=== PATIENT | female | born 1985 | race American Indian/Alaskan Native ===

== ENCOUNTER 2019-01-01 06:05 | Emergency (ER) | payer OTHER ==
[2019-01-01 06:12] VITALS: BP 125/77
[2019-01-01] MEDS ORDERED: NORCO 5/325 PO ONE (06:21)
--- NOTE | 2019-01-01 06:26 | Emergency Department Report ---
ED Lower Extremity HPI - General Chief Complaint: Extremity Injury, Lower Stated Complaint: ETOH Source: patient, family Mode of arrival: Wheelchair Limitations: Physical Limitation - History of Present Illness Initial Comments: Patient is a 39-year-old -[place] female who presents for left ankle pain and swelling patient. Patient presents via POV and family member com plaining of 05/14 left lateral ankle pain with swelling and tingling patient is unable to bear weight states he tripped and fell on her floor last night and slept on the floor last night until prompted by a family member to report the ED for evaluation and treatment pain is exacerbated by movement or attempted weight bearing pain is relieved by nothing. Complaint: ankle injury Onset/Timin -: hour(s) Injury: Ankle: Left (pain swelling tingling bruising ) Type of Injury: eversion Place: home Severity: moderate Severity scale (0 -10): 7 Improves With: nothing Worsens With: weight bearing, movement, palpation Context: fall Associated Symptoms: snap/pop sensation, swelling, tingling, unable to bear weight - Related Data Previous Rx's Medication Instructions Recorded Last Taken Type HYDROcodone/ACETAMINOPHEN 1 each PO Q6H PRN #12 tablet 01/01/19 Unknown Rx [Hydrocodone-Acetamin 5-325 mg] Allergies Allergy/AdvReac Type Severity Reaction Status Date / Time Penicillins Allergy Hives Verified 01/01/19 06:09 ED Review of Systems ROS: Stated complaint: ETOH Other details as noted in HPI Constitutional: denies: chills, fever Eyes: denies: eye pain, eye discharge, vision change ENT: denies: ear pain, throat pain Respiratory: denies: cough, shortness of breath, wheezing Cardiovascular: denies: chest pain, palpitations Endocrine: no symptoms reported Gastrointestinal: denies: abdominal pain, nausea, diarrhea Genitourinary: denies: urgency, dysuria, discharge Musculoskeletal: joint swelling (left ankle swelling ). denies: back pain, arthralgia Skin: denies: rash, lesions Neurological: denies: headache, weakness, paresthesias Psychiatric: denies: anxiety, depression Hematological/Lymphatic: denies: easy bleeding, easy bruising ED Past Medical Hx - Past Medical History Previous Medical History?: No - Surgical History Past Surgical History?: Yes Additional Surgical History: bone spurs bilateral foot - Social History Smoking Status: Current Every Day Smoker Substance Use Type: None - Medications Home Medications: Home Medications Medication Instructions Recorded Confirmed Last Taken Type HYDROcodone/ACETAMINOPHEN 1 each PO Q6H PRN #12 tablet 01/01/19 Unknown Rx [Hydrocodone-Acetamin 5-325 mg] ED Physical Exam - General Limitations: Physical Limitation General appearance: alert, in no apparent distress - Head Head exam: Present: normocephalic, normal inspection - Eye Eye exam: Present: normal appearance, PERRL, EOMI Pupils: Present: normal accommodation - ENT ENT exam: Present: mucous membranes moist - Neck Neck exam: Present: normal inspection, full ROM. Absent: tenderness, lymphadenopathy, thyromegaly - Respiratory Respiratory exam: Present: normal lung sounds bilaterally. Absent: respiratory distress, wheezes, stridor, chest wall tenderness - Cardiovascular Cardiovascular Exam: Present: regular rate, normal rhythm, normal heart sounds. Absent: systolic murmur, diastolic murmur, rubs, gallop - GI/Abdominal GI/Abdominal exam: Present: soft, normal bowel sounds. Absent: tenderness, bruit, hernia - Rectal Rectal exam: Present: deferred - Extremities Exam Extremities exam: Present: tenderness (left ankle pain swelling ), normal capillary refill, joint swelling. Absent: pedal edema, calf tenderness - Expanded Lower Extremity Exam Left Ankle exam: Present: tenderness, swelling, ecchymosis, erythema. Absent: full ROM (rom restricted by pain neg ventura's test ), abrasion, laceration, deformity, crepidus, dislocation, anterior draw sign Foot/Toe exam: Present: full ROM, tenderness. Absent: swelling, abrasion, laceration, ecchymosis, deformity, crepidus, dislocation, erythema, amputation, puncture wound, foreign body, calcaneal tenderness, tenderness at base of 5th metatarsal, nail avulsion, subungual hematoma Neuro vascular tendon exam: Absent: no vascular compromise, motor deficit, sensory deficit, tendon deficit, abnormal 2-point discrimination, foot drop, significant pain with passive ROM of distal joint Gait: Positive: observed and limited by pain - Back Exam Back exam: Present: normal inspection, full ROM. Absent: tenderness, CVA tenderness (R), CVA tenderness (L), muscle spasm, paraspinal tenderness, vertebral tenderness, rash noted - Neurological Exam Neurological exam: Present: alert, oriented X3, CN II-XII intact, abnormal gait (partial weight bearing left foot ), reflexes normal. Absent: motor sensory deficit - Psychiatric Psychiatric exam: Present: normal affect, normal mood - Skin Skin exam: Present: warm, dry, intact, normal color. Absent: rash ED Course Vital Signs 01/01/19 06:07 Temperature 98.2 F Pulse Rate 116 H Respiratory 16 Rate Blood Pressure 125/77 O2 Sat by Pulse 98 Oximetry ED Lower Extremity MDM - Radiology Data Radiology results: report reviewed, image reviewed FINDINGS: Fracture (s) and/or Dislocation(s): There is an oblique slightly displaced fracture through the distal fibula. The distal tibia and talus appear intact. Alignment: Normal. Joint space(s): Widening of the ankle mortise globally. Soft tissues: Mild diffuse soft tissue swelling. Mild joint effusion Bone mineralization: Normal. Foreign bodies: Normal. Calcaneal spurring: Small inferior spur IMPRESSION: There is an oblique slightly displaced fracture through the distal fibula. Moderate widening of the ankle mortise. There associated soft tissue swelling and mild effusion.. Transcribed By: [facility] Dictated By: SHAW FIELDS MD Electronically Authenticated By: SHAW FIELDS MD Signed Date/Time: 01/01/19 07 DD/ 7 TD/TT: 01/01/19657 - Medical Decision Making this is a closed distal fibula fx mildly displaced, plan, tyler short leg, crutches, dc to home with hydrocodone prn pain, follow up with ortho in 2 days , return to ed if symptoms worsen. splint check complete at this time, spacing is appropriate via two finger insertion, distal pulses are intact, pt demonstrated safe use of crutches , pt dc'd to home in stable condition. Critical care attestation.: If time is entered above; I have spent that time in minutes in the direct care of this critically ill patient, excluding procedure time. ED Disposition Clinical Impression: Closed fracture of distal fibula Qualifiers: Encounter type: initial encounter Fracture morphology: unspecified fracture morphology Laterality: left Qualified Code(s): S82.832A - Other fracture of upper and lower end of left fibula, initial encounter for closed fracture Disposition: DC-01 TO HOME OR SELFCARE Is pt being admited?: No Does the pt Need Aspirin: No Condition: Stable Instructions: Ankle Fracture (ED) Prescriptions: HYDROcodone/ACETAMINOPHEN [Hydrocodone-Acetamin 5-325 mg] 1 each PO Q6H PRN #12 tablet PRN Reason: pain Referrals: RM JOYNER MD [Primary Care Provider] - 3-5 Days GIBSON DEL VALLE MD [Staff Physician] - 3-5 Days Forms: Work/School Release Form(ED) Time of Disposition: 07:13
--- NOTE | 2019-01-01 07:00 | XRay Report ---
FINAL REPORT PROCEDURE: XR ANKLE 2V LT TECHNIQUE: LEFT ankle radiographs, AP and lateral views. HISTORY: etoh and fall COMPARISON: No prior studies are available for comparison. FINDINGS: Fracture (s) and/or Dislocation(s): There is an oblique slightly displaced fracture through the dista l fibula. The distal tibia and talus appear intact. Alignment: Normal. Joint space(s): Widening of the ankle mortise globally. Soft tissues: Mild diffuse soft tissue swelling. Mild joint effusion Bone mineralization: Normal. Foreign bodies: Normal. Calcaneal spurring: Small inferior spur IMPRESSION: There is an oblique slightly displaced fracture through the distal fibula. Moderate widening of the a nkle mortise. There associated soft tissue swelling and mild effusion..
== END 2019-01-01 07:20 | disposition home or self-care (01) ==
LOC: ED 06:05
DX: S82.832A Other fracture of upper and lower end of left fibula, initial encounter for closed fracture (principal); F17.200 Nicotine dependence, unspecified, uncomplicated; Z88.0 Allergy status to penicillin; W18.39XA Other fall on same level, initial encounter; Y93.01 Activity, walking, marching and hiking; Y92.019 Unspecified place in single-family (private) house as the place of occurrence of the external cause; Y99.8 Other external cause status